=== PATIENT | male | born 1990 | race Caucasian/White ===

== ENCOUNTER 2016-07-02 19:38 | Emergency (ER) | payer MEDICAID | END 2016-07-02 21:45 | disposition home or self-care (01) | LOC: D.ER 19:38 | DX: M54.9 Dorsalgia, unspecified (principal); M41.9 Scoliosis, unspecified ==

== ENCOUNTER 2016-08-07 19:43 | Emergency (ER) | payer MEDICAID | END 2016-08-07 21:11 | disposition home or self-care (01) | LOC: D.ER 19:43 | DX: M54.5 Low back pain (principal); I45.10 Unspecified right bundle-branch block ==

== ENCOUNTER 2016-08-28 13:20 | Emergency (ER) | payer MEDICAID | END 2016-08-28 20:50 | disposition home or self-care (01) | LOC: D.ER 13:20 | DX: S89.92XA Unspecified injury of left lower leg, initial encounter (principal); W19.XXXA Unspecified fall, initial encounter; Y93.89 Activity, other specified; Y92.89 Other specified places as the place of occurrence of the external cause; S83.91XA Sprain of unspecified site of right knee, initial encounter; F17.200 Nicotine dependence, unspecified, uncomplicated ==

== ENCOUNTER 2016-11-19 13:18 | Observation (INO) | payer MEDICAID ==
[~2016-11-19] VITALS: Ht 160 cm; Wt 84.1 kg
[2016-11-19 14:02] LABS: BASOPHILS 0.2 % (0-2); EOSINOPHILS 0.2 % (0-7); HEMATOCRIT 48.2 % (42.0-54.0); HEMOGLOBIN 16.8 g/dL (13.5-17.5); IMMATURE GRANULOCYTES 0.2 % (0-5); MCH 32.1 pg (26.0-34.0); MCHC 34.9 g/dL (31.0-37.0); MEAN PLATELET VOLUME 13.5 fL (7.4-10.4); MONOCYTES 4.2 % (2-11); NEUTROPHILS 84.2 % (40-80); PLATELET COUNT 177 10x3/uL (130-400); RBC 5.24 10x6/uL (4.20-6.10); RDW 12.8 % (11.5-14.5)
[2016-11-19 14:22] LABS: ALBUMIN 4.6 g/dL (3.4-5.0); ALKALINE PHOSPHATASE 95 U/L (46-116); ALT (SGPT) 34 U/L (10-68); BILIRUBIN - TOTAL 0.59 mg/dL (0.2-1.3); CALC OSMOLALITY 280 mosm/kg (275-300); CALCIUM 9.7 mg/dL (8.5-10.1); CARBON DIOXIDE 27.4 mmol/L (21.0-32.0); CHLORIDE - SERUM 103 mmol/L (98-107); CREATININE - SERUM 0.9 mg/dL (0.6-1.3); GLUCOSE 133 mg/dL (74-106); POTASSIUM - SERUM 3.5 mmol/L (3.5-5.1); PROTEIN - SERUM 7.6 g/dL (6.4-8.2); SODIUM 141 mmol/L (136-145); UREA NITROGEN 8 mg/dL (7-18); eGFR NON AFRICAN AMERICAN > 90 mL/min (90-120)
[2016-11-19 14:25] LABS: AMYLASE - SERUM 45 U/L (25-115); LIPASE 101 U/L (73-393); TROPONIN-I < 0.017 ng/mL (0.000-0.060)
[2016-11-19 17:31] LABS: UDS - AMPHET NEGATIVE QUAL (NEGATIVE); UDS - BARB NEGATIVE QUAL (NEGATIVE); UDS - BENZO NEGATIVE QUAL (NEGATIVE); UDS - COCAINE NEGATIVE QUAL (NEGATIVE); UDS - METH NEGATIVE QUAL (NEGATIVE); UDS - OPIATE NEGATIVE QUAL (NEGATIVE); UDS - PCP NEGATIVE QUAL (NEGATIVE); UDS - THC POSITIVE QUAL (NEGATIVE)
[2016-11-19 17:33] LABS: APPEARANCE CLEAR (CLEAR); BILIRUBIN NEGATIVE (NEGATIVE); COLOR YELLOW (YELLOW); GLUCOSE NEGATIVE (NEGATIVE); KETONE MODERATE mg/dL (NEGATIVE); LEUKOCYTE ESTERASE NEGATIVE (NEGATIVE); NITRITE NEGATIVE (NEGATIVE); PROTEIN NEGATIVE (NEGATIVE); UROBILINOGEN NORMAL (NORMAL)
[2016-11-19 23:59] VITALS: Ht 160 cm; Wt 84.1 kg
[2016-11-20] VITALS (7 sets, daily range): BP systolic 99–163; BP diastolic 49–84
[2016-11-20 06:43] LABS: BASOPHILS 0.1 % (0-2); EOSINOPHILS 0.1 % (0-7); HEMATOCRIT 42.7 % (42.0-54.0); HEMOGLOBIN 14.7 g/dL (13.5-17.5); IMMATURE GRANULOCYTES 0.3 % (0-5); LYMPHOCYTES 15.6 % (15-50); MCH 31.6 pg (26.0-34.0); MCHC 34.4 g/dL (31.0-37.0); MCV 91.8 fL (80.0-100.0); MEAN PLATELET VOLUME 13.9 fL (7.4-10.4); MONOCYTES 7.1 % (2-11); NEUTROPHILS 76.8 % (40-80); PLATELET COUNT 175 10x3/uL (130-400); RBC 4.65 10x6/uL (4.20-6.10); RDW 12.8 % (11.5-14.5); WBC 16.8 10x3/uL (4.8-10.8)
[2016-11-20 06:56] LABS: CALC OSMOLALITY 280 mosm/kg (275-300); CARBON DIOXIDE 28.6 mmol/L (21.0-32.0); CHLORIDE - SERUM 104 mmol/L (98-107); CREATININE - SERUM 0.8 mg/dL (0.6-1.3); GLUCOSE 107 mg/dL (74-106); POTASSIUM - SERUM 3.1 mmol/L (3.5-5.1); SODIUM 142 mmol/L (136-145); UREA NITROGEN 6 mg/dL (7-18); eGFR NON AFRICAN AMERICAN > 90 mL/min (90-120)
--- NOTE | 2016-11-20 08:11 | NUR ---
PT IS ASLEEP IN BED, BED IN LOW POSITION, CALL LIGHT WITHIN REACH, PT VISITOR STAYED OVERNIGHT, SHE WAS AWAKE, INTRODUCED MYSELF HIS NURSE AND ASKED HER TO PUSH CALL LIGHT IF ANY NEEDS
--- NOTE | 2016-11-20 10:25 | NUR ---
PATIENT VERBAIZED FEELING NAUSEOUS. PATIENT IS HOLDING HIS HAND OVER HIS ABDOMEN.
--- NOTE | 2016-11-20 11:19 | NUR ---
CHECKED PT STATUS ON N/V PT STATED STILL NAUSEOUS / REFUSED FLORAJEN FOR NOW, PT IS LYING ON RT SIDE EYES CLOSED EVEN RISE AND FALL OF CHEST NO SIGNS OF LABORED BREATHING OR DISTRESS. CALL LIGHT WITHIN REACH BED IN LOWEST POSITION
--- NOTE | 2016-11-20 14:00 | NUR ---
PT REFUSED PHENEGRAN WHEN ADVISED ADMIN WAS SUPPOSITORY. PT IS STILL NAUSEOUS AND STATED WILL WAIT FOR NEXT DOSE OF ZOFRAN, PT IS LYING IN BED ON LEFT SIDE, STILL HEAVING. PLACED EXTRA EMISIS BAG IN PT ROOM. CALL LIGHT IN REACH , BED IN LOW POSITION
--- NOTE | 2016-11-20 15:57 | NUR ---
ADMIN KCL FOR PT IN RT HAND/ UNABLE TO TOLERATE, SWITCHED TO PT LT AC, PT ABLE TO TOLERATE BETTER. BED IN LOW POSITION/ CALL LIGHT IN REACH PT VISITING W/ FAMILY
--- NOTE | 2016-11-20 17:21 | NUR ---
PT COMPLAINS THAT IV IN LT AC STARTING TO BURN/ PT HAS POTASSIUM INFUSING AT 50ML/HR/ PT LOOKS TO HAVE 5ML LEFT/ PT REQUESTED D/C SO HE CAN WALK WITH FAMILY OUT SIDE
--- NOTE | 2016-11-20 18:09 | NUR ---
PATIENT VERBALIZED BURNING AT THE IV SITE WITH POTASSIUM CHLORIDE 10MEQ INFUSING. RATE GOING AT 50ML/HR TO LEFT AC 18G IV. FLUSHED WITH SALINE ASPIRATED BLOOD. PATIENT STILL VERBALIZED BURNING. PATIENT STATED HIS NAUSEA IS UNDER CONTROL AT THIS TIME, REQUESTED TO TRY PO POTASSIUM.
--- NOTE | 2016-11-20 23:11 | NUR ---
REC'D CHGE. OF SHIFT OUTSIDE SMOKING.WILL ASSESS ON RETURN TO ROOM
[2016-11-21 00:35] VITALS: BP 107/66
[2016-11-21 04:00] VITALS: BP 102/65
--- NOTE | 2016-11-21 04:38 | NUR ---
PATIENT RESTING WITH EYES CLOSED AND NO VISIBLE SIGNS OF DISTRESS. BED IN LOWEST POSITION AND CALL LIGHT WITHIN REACH.
[2016-11-21 06:18] LABS: BASOPHILS 0.4 % (0-2); HEMATOCRIT 42.7 % (42.0-54.0); HEMOGLOBIN 14.4 g/dL (13.5-17.5); IMMATURE GRANULOCYTES 0.2 % (0-5); LYMPHOCYTES 32.7 % (15-50); MCH 31.3 pg (26.0-34.0); MCHC 33.7 g/dL (31.0-37.0); MCV 92.8 fL (80.0-100.0); MEAN PLATELET VOLUME 12.8 fL (7.4-10.4); MONOCYTES 7.8 % (2-11); NEUTROPHILS 57.9 % (40-80)
[2016-11-21 06:23] LABS: PLATELET COUNT 138 10x3/uL (130-400); WBC 9.6 10x3/uL (4.8-10.8)
[2016-11-21 06:37] LABS: CALC OSMOLALITY 281 mosm/kg (275-300); CALCIUM 8.6 mg/dL (8.5-10.1); CARBON DIOXIDE 27.8 mmol/L (21.0-32.0); CHLORIDE - SERUM 108 mmol/L (98-107); CREATININE - SERUM 0.8 mg/dL (0.6-1.3); GLUCOSE 103 mg/dL (74-106); POTASSIUM - SERUM 3.4 mmol/L (3.5-5.1); SODIUM 143 mmol/L (136-145); UREA NITROGEN 4 mg/dL (7-18); eGFR NON AFRICAN AMERICAN > 90 mL/min (90-120)
--- NOTE | 2016-11-21 07:52 | NUR ---
PTIS LYING IN BED,EYES CLOSED, EVEN RISE AND FALL OF CHEST, PT COMPLAINED OF NAUSEA AT 0700 AND RN RAGHAV ADMINISTERD ZOFRAN, NO SIGNS OF DISTRESS AT THIS TIME
[2016-11-21 08:42] VITALS: BP 117/61
--- NOTE | 2016-11-21 10:05 | NUR ---
PT LYING IN BED/ STATED NOT NAUSEOUS, IV IN RT HAND INTACT, NO SWELLING, NO PAIN, BED IS IN LOW POSITION AND CALL LIGHT WITHIN REACH
[2016-11-21 11:36] VITALS: BP 116/64
--- NOTE | 2016-11-21 12:43 | NUR ---
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
--- NOTE | 2016-11-21 16:12 | NUR ---
PT IS SITTING UP IN CHAIR, HAS WALKED AROUND IN UNIT TWICE. NO PAIN AT THIS TIME, VERBALIZED NO OTHER NEEDS. BED IN LOW POSITION/ CALL LIGHT IN REACH
[2016-11-21 17:30] VITALS: BP 118/68
[2016-11-21 20:00] VITALS: BP 134/86
[2016-11-22] VITALS: BP 111/66
[2016-11-22 04:00] VITALS: BP 120/68
[2016-11-22 06:41] LABS: BASOPHILS 0.5 % (0-2); HEMATOCRIT 42.8 % (42.0-54.0); HEMOGLOBIN 14.5 g/dL (13.5-17.5); IMMATURE GRANULOCYTES 0.2 % (0-5); LYMPHOCYTES 36.9 % (15-50); MCH 31.4 pg (26.0-34.0); MCHC 33.9 g/dL (31.0-37.0); MCV 92.6 fL (80.0-100.0); MEAN PLATELET VOLUME 13.6 fL (7.4-10.4); MONOCYTES 9.7 % (2-11); NEUTROPHILS 50.7 % (40-80); PLATELET COUNT 148 10x3/uL (130-400); RBC 4.62 10x6/uL (4.20-6.10); RDW 12.7 % (11.5-14.5); WBC 9.4 10x3/uL (4.8-10.8)
[2016-11-22 06:58] LABS: CALC OSMOLALITY 278 mosm/kg (275-300); CALCIUM 8.8 mg/dL (8.5-10.1); CARBON DIOXIDE 27.2 mmol/L (21.0-32.0); CHLORIDE - SERUM 105 mmol/L (98-107); CREATININE - SERUM 0.8 mg/dL (0.6-1.3); GLUCOSE 88 mg/dL (74-106); POTASSIUM - SERUM 3.3 mmol/L (3.5-5.1); SODIUM 142 mmol/L (136-145); UREA NITROGEN 4 mg/dL (7-18); eGFR NON AFRICAN AMERICAN > 90 mL/min (90-120)
[2016-11-22 07:10] VITALS: BP 108/65
--- NOTE | 2016-11-22 07:30 | NUR ---
AWAKE & ALERT, DENIES NEEDS, BED LOWEST POSITION, CALL LIGHT IN REACH, WILL CONTINUE TO MONITOR
--- NOTE | 2016-11-22 08:55 | NUR ---
REMAINS NPO AT THIS TIME. RESPIRATIONS EVEN AND NON LABORED. CALL LIGHT IN REACH, WILL CONTINUE WITH PLAN OF CARE.
[2016-11-22 11:08] LABS: ERYTHROCYTE SEDIMENTATION RATE 1 mm/hr (0-15)
--- NOTE | 2016-11-22 11:15 | NUR ---
2 ENEMAS GIVEN PER ORDER
[2016-11-22 12:04] VITALS: BP 130/76
--- NOTE | 2016-11-22 13:47 | NUR ---
PT REFUSES TO STAY IN ROOM, ALWAYS LEAVING FLOOR FOR A WALK
--- NOTE | 2016-11-22 14:22 | NUR ---
Late Entry 1300 CM went to interview patient for discharge plans and needs. NO one was in his room. Will revisit.
--- NOTE | 2016-11-22 14:30 | NUR ---
Late Entry 1300 CM went to interview patient for discharge planning and needs. No one in the room. Will revisit.
[2016-11-22 15:54] VITALS: BP 95/51
--- NOTE | 2016-11-22 15:55 | NUR ---
Is the patient Alert and Oriented? Yes 0 * How many steps to enter\exit or inside your home? none 0 * PCP No PCP 0 * Pharmacy [facility] on [address] [place] 0 * Preadmission Environment Home with Family 0 * ADLs Independent 0 * Equipment None 0 * Other Equipment N/A 0 * List name and contact numbers for known caregivers / representatives who currently or will assist patient after discharge: Marielena Mackenzie [phone] 0 * Community resources currently utilized None 0 * Please name any agencies selected above. N/A 0 * Additional services required to return to the preadmission environment? No 0 * Can the patient safely return to the preadmission environment? Yes 0 * Has this patient been hospitalized within the prior 30 days at any hospital? No 0
--- NOTE | 2016-11-22 15:56 | NUR ---
Patient has returned to his room. He is anxious to go home. His "baby's Mama" will provide transportation at discharge. He states he stays with his mother. PCP- None Specialist- None Pharmacy- [facility] home health services. Denies need. No DME. Denies need and no apparent need. CM request for patient to stay in his room so that DR Cartagena could see him. Primary nurse reports he frequently leave the floor.
[2016-11-22] MEDS ORDERED: NICODERM C1 PATCH .1 TRANSDERM (16:21)
[2016-11-22] MEDS ORDERED: LEVAQUIN500 MG PO (16:21)
[2016-11-22] MEDS ORDERED: FLAGYL500 MG PO (16:22)
--- NOTE | 2016-11-22 18:20 | NUR ---
DISCHARGE PAPERS AND INSTRUCTIONS GIVEN TO PT, QUESTIONS ANSWERED, IV REMOVED TIP INTACT, DISCHARGED PER WC WITH BELONGINGS
== END 2016-11-22 18:38 | disposition home or self-care (01) ==
LOC: D.ER 13:18 → OBSVTIME 19:00 → D.MS 19:00
PROVIDERS: Family Medicine; Internal Medicine Gastroenterology; ADMIT Family Medicine Adult Medicine
DX: K52.9 Noninfective gastroenteritis and colitis, unspecified (principal); E87.6 Hypokalemia; F17.203 Nicotine dependence unspecified, with withdrawal

== ENCOUNTER 2017-06-06 22:43 | Emergency (ER) | payer MEDICAID ==
[2016-11-19 23:59] VITALS: BMI 32.8
[~2017-06-06 22:43] MED LIST: FLAGYL500 MG PO; LEVAQUIN500 MG PO; NICODERM C1 PATCH .1 TRANSDERM
[2017-06-06 23:28] LABS: APPEARANCE HAZY (CLEAR); COLOR YELLOW (YELLOW)
[2017-06-06 23:29] LABS: BILIRUBIN NEGATIVE (NEGATIVE); GLUCOSE NEGATIVE (NEGATIVE); KETONE NEGATIVE (NEGATIVE); NITRITE NEGATIVE (NEGATIVE); PROTEIN NEGATIVE (NEGATIVE); UROBILINOGEN NORMAL (NORMAL)
[2017-06-06 23:33] LABS: BACTERIA FEW /hpf (NONE SEEN); EPITHELIAL CELLS 0-5 /hpf (0-5); RED CELLS - URINE 0-5 /hpf (0-5)
== END 2017-06-06 23:58 | disposition home or self-care (01) ==
LOC: D.ER 22:43
PROVIDERS: Emergency Medicine
DX: N45.1 Epididymitis (principal); F17.200 Nicotine dependence, unspecified, uncomplicated

== ENCOUNTER 2018-05-09 08:49 | Emergency (ER) | payer MEDICAID ==
[~2018-05-09] VITALS: Ht 160 cm; Wt 75.0 kg
[2018-05-09 08:53] VITALS: Ht 160 cm; Wt 75.0 kg
[2018-05-09 09:42] LABS: HEMATOCRIT 49.6 % (42.0-54.0); HEMOGLOBIN 17.6 g/dL (13.5-17.5); MCHC 35.5 g/dL (31.0-37.0); MCV 92.9 fL (80.0-100.0); MEAN PLATELET VOLUME 12.9 fL (7.4-10.4); PLATELET COUNT 221 10x3/uL (130-400); RBC 5.34 10x6/uL (4.20-6.10); RDW 13.4 % (11.5-14.5); WBC 22.2 10x3/uL (4.8-10.8)
[2018-05-09 09:53] LABS: ALBUMIN 4.7 g/dL (3.4-5.0); ALKALINE PHOSPHATASE 99 U/L (46-116); ALT (SGPT) 47 U/L (10-68); BILIRUBIN - TOTAL 0.47 mg/dL (0.2-1.3); CALC OSMOLALITY 276 mosm/kg (275-300); CHLORIDE - SERUM 100 mmol/L (98-107); GLUCOSE 123 mg/dL (74-106); POTASSIUM - SERUM 3.3 mmol/L (3.5-5.1); PROTEIN - SERUM 8.5 g/dL (6.4-8.2); SODIUM 139 mmol/L (136-145); UREA NITROGEN 6 mg/dL (7-18); eGFR NON AFRICAN AMERICAN > 90 mL/min (90-120)
[2018-05-09 09:58] LABS: LYMPHOCYTES 10 % (15-50); MONOCYTES 1 % (2-11); NEUTROPHILS 86 % (40-80); PLATELET ESTIMATE NORMAL
[2018-05-09 10:45] LABS: APPEARANCE CLEAR (CLEAR); BILIRUBIN NEGATIVE (NEGATIVE); COLOR YELLOW (YELLOW); GLUCOSE NEGATIVE (NEGATIVE); KETONE MODERATE mg/dL (NEGATIVE); NITRITE NEGATIVE (NEGATIVE); PROTEIN NEGATIVE (NEGATIVE); UROBILINOGEN NORMAL (NORMAL)
[2018-05-09 10:52] LABS: UDS - AMPHET NEGATIVE QUAL (NEGATIVE); UDS - BARB NEGATIVE QUAL (NEGATIVE); UDS - BENZO NEGATIVE QUAL (NEGATIVE); UDS - COCAINE NEGATIVE QUAL (NEGATIVE); UDS - OPIATE NEGATIVE QUAL (NEGATIVE); UDS - PCP NEGATIVE QUAL (NEGATIVE); UDS - THC POSITIVE QUAL (NEGATIVE)
[2018-05-09 11:24] VITALS: BP 113/76
== END 2018-05-09 12:45 | disposition home or self-care (01) ==
LOC: D.ER 08:49
PROVIDERS: Family Medicine
DX: F12.10 Cannabis abuse, uncomplicated (principal); R07.9 Chest pain, unspecified; R06.02 Shortness of breath; R42 Dizziness and giddiness; R53.1 Weakness; R11.0 Nausea

== ENCOUNTER 2019-03-23 10:38 | Emergency (ER) | payer MEDICAID ==
[~2019-03-23] VITALS: Ht 160 cm; Wt 72.7 kg
[2019-03-23 10:45] VITALS: BP 116/62; Ht 160 cm; Wt 72.7 kg
[2019-03-23 11:34] LABS: BASOPHILS 0.2 % (0-2); EOSINOPHILS 0.1 % (0-7); HEMATOCRIT 50.4 % (42.0-54.0); HEMOGLOBIN 17.6 g/dL (13.5-17.5); IMMATURE GRANULOCYTES 0.3 % (0-5); LYMPHOCYTES 11.5 % (15-50); MCH 32.3 pg (26.0-34.0); MCHC 34.9 g/dL (31.0-37.0); MCV 92.5 fL (80.0-100.0); MONOCYTES 3.8 % (2-11); NEUTROPHILS 84.1 % (40-80); PLATELET COUNT 181 10x3/uL (130-400); RBC 5.45 10x6/uL (4.20-6.10); RDW 13.1 % (11.5-14.5); WBC 19.4 10x3/uL (4.8-10.8)
[2019-03-23 11:45] LABS: CALC OSMOLALITY 283 mosm/kg (275-300); CALCIUM 10.3 mg/dL (8.5-10.1); CARBON DIOXIDE 27.2 mmol/L (21.0-32.0); CHLORIDE - SERUM 102 mmol/L (98-107); CREATININE - SERUM 1.2 mg/dL (0.6-1.3); GLUCOSE 137 mg/dL (74-106); SODIUM 142 mmol/L (136-145); UREA NITROGEN 11 mg/dL (7-18); eGFR NON AFRICAN AMERICAN 78 mL/min (90-120)
[2019-03-23 11:58] LABS: ALBUMIN 4.9 g/dL (3.4-5.0); ALKALINE PHOSPHATASE 95 U/L (46-116); ALT (SGPT) 56 U/L (10-68); AMYLASE - SERUM 69 U/L (25-115); BILIRUBIN - TOTAL 0.59 mg/dL (0.2-1.3); LIPASE 229 U/L (73-393); PROTEIN - SERUM 8.6 g/dL (6.4-8.2)
== END 2019-03-23 12:50 | disposition left against medical advice (07) ==
LOC: D.ER 10:38
PROVIDERS: Family Medicine
DX: R11.2 Nausea with vomiting, unspecified (principal); R10.9 Unspecified abdominal pain